=== PATIENT | female | born 1990 | race Caucasian/White ===

== ENCOUNTER 2017-08-04 04:26 | Emergency (ER) | payer OTHER ==
[~2017-08-04] VITALS: Ht 157.5 cm; Wt 61.2 kg
[2017-08-04 04:36] VITALS: BP 129/82
[2017-08-04 04:51] LABS: CASTS None Seen /LPF (None Seen); CRYSTALS None Seen /LPF (None Seen); MUCUS 0-3 Light strn/LPF (None Seen); SQUAMOUS 4-10 Moderate /LPF (0-3); URINE RBC >20 Many /HPF (0-2); URINE WBC-REFLEX >25 Many /HPF (0-5)
[2017-08-04 04:53] LABS: ICTOTEST (BILI CONFIRMATORY) Negative (Negative)
[2017-08-04] MEDS ORDERED: KEFLEX500 M1 PO (04:55)
[2017-08-04 04:56] LABS: SSA (PROTEIN CONFIRMATORY) TRACE (APPROX. 5) mg/dL (Negative)
[2017-08-04 04:57] LABS: URINE CLARITY CLOUDY; URINE COLOR ORANGE
[2017-08-04 05:00] LABS: URINE REDUCING SUBSTANCE NEGATIVE
== END 2017-08-04 05:12 | disposition home or self-care (01) ==
LOC: ER 04:26
PROVIDERS: Emergency Medicine
DX: N39.0 Urinary tract infection, site not specified (principal); F17.210 Nicotine dependence, cigarettes, uncomplicated; Z88.2 Allergy status to sulfonamides